=== PATIENT | female | born 1995 | race African-American/Black ===

== ENCOUNTER 2017-03-30 08:07 | Emergency (ER) | payer OTHER ==
[2017-03-30 08:15] VITALS: BP 110/63; PULSE 76; TEMP 98.5; BMI 35.5
--- NOTE | 2017-03-30 08:31 | PDOC ---
History of Present Illness - General Chief Complaint: Cold Symptoms Stated Complaint: PINK EYE/BODYACHES Time Seen by Provider: 03/30/17 08:16 History Source: Patient Exam Limitations: No Limitations - History of Present Illness Initial Comments: 03/30/17 08:26 CC body aches, cough, runny nose and right eye drainage x 3 days; no fever with chills Timing/Duration: reports: getting worse Severity: reports: mild Possible Cause: Yes: allergen exposure Associated Symptoms: reports: cough, sinus infection. denies: earache, headache , sore throat, wheezing Past History - Past Medical History Allergies/Adverse Reactions: Allergies Allergy/AdvReac Type Severity Reaction Status Date / Time No Known Allergies Allergy Verified 03/30/17 08:09 Home Medications: Ambulatory Orders NK [No Known Home Medication] 03/30/17 Other medical history: denies. - Immunization History Immunization Up to Date: Yes - Psycho/Social/Smoking Cessation Hx Anxiety: No Suicidal Ideation: No Smoking Status: No Smoking History: Never smoked Have you smoked in the past 12 months: No Number of Cigarettes Smoked Daily: 0 Hx Alcohol Use: No Drug/Substance Use Hx: No Substance Use Type: None Review of Systems - Review of Systems Constitutional: Yes: Chills, Malaise. No: Fever HEENTM: Yes: Tearing, Nose Congestion. No: Double Vision, Ear Pain, Ear Discharge, Throat Swelling Respiratory: Yes: Cough. No: Stridor, Wheezing Cardiac (ROS): No: Symptoms Reported ABD/GI: No: Symptoms Reported *Physical Exam - Vital Signs Last Vital Signs Temp Pulse Resp BP Pulse Ox 98.5 F 76 18 110/63 98 03/30/17 08:09 03/30/17 08:09 03/30/17 08:09 03/30/17 08:09 03/30/17 08:09 - Physical Exam General Appearance: Yes: Appropriately Dressed. No: Apparent Distress HEENT: positive: EOMI, TMs Normal, Pharynx Normal, Nasal Congestion, Rhinorrhea , Other (injected right conjunctiva, with debris right lid margins). negative: TM Bulging, TM Dull, TM Erythema, Lesions Respiratory/Chest: positive: Lungs Clear. 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
== END 2017-03-30 08:36 | disposition home or self-care (01) ==
LOC: JERFT 08:07
DX: H10.31 Unspecified acute conjunctivitis, right eye (principal); J34.89 Other specified disorders of nose and nasal sinuses
CPT/HCPCS: 99281-25

== ENCOUNTER 2017-08-04 20:52 | Emergency (ER) | payer OTHER ==
[2017-08-04 21:00] VITALS: BP 108/80; PULSE 64; TEMP 98; BMI 36.0
--- NOTE | 2017-08-04 22:18 | PDOC ---
History of Present Illness - General Chief Complaint: Pain Stated Complaint: LUMP IN CHEST Time Seen by Provider: 08/04/17 22:18 - History of Present Illness Initial Comments: 08/04/17 22:36 Patient is a 22-year-old female with no past medical history who presents to the emergency department today complaining of a bump on her sternum. Patient states that she had a pimple in that area proximally 2 weeks ago. It drained pus at the time. Now she states that there is a small bump under her skin. It hurts when she touches it, otherwise does not bother her. Denies fever, chills, nausea, vomiting and diarrhea. Denies breast pain or lumps. Denies active drainage from the site. Past History - Travel Traveled outside of the country in the last 30 days: No Close contact w/someone who was outside of country & ill: No - Past Medical History Allergies/Adverse Reactions: Allergies Allergy/AdvReac Type Severity Reaction Status Date / Time No Known Allergies Allergy Verified 08/04/17 20:57 Home Medications: Ambulatory Orders NK [No Known Home Medication] 08/04/17 - Immunization History Immunization Up to Date: Yes - Psycho/Social/Smoking Cessation Hx Anxiety: No Suicidal Ideation: No Smoking Status: No Smoking History: Never smoked Have you smoked in the past 12 months: No Number of Cigarettes Smoked Daily: 0 Hx Alcohol Use: No Drug/Substance Use Hx: No Substance Use Type: None Review of Systems - Review of Systems Able to Perform ROS?: Yes Is the patient limited Italian proficient: No Constitutional: No: Chills, Fever, Malaise, Weakness Integumentary: Yes: Lumps (mid sternum. ). No: Change in Color, Erythema, Pruritus, Rash *Physical Exam - Vital Signs Last Vital Signs Temp Pulse Resp BP Pulse Ox 98 F 64 18 108/80 100 08/04/17 20:58 08/04/17 20:58 08/04/17 20:58 08/04/17 20:58 08/04/17 20:58 - Physical Exam Comments: 08/06/17 09:41 GENERAL: [The patient is awake, alert, and fully oriented, in no acute distress. ] HEAD: [Normal with no signs of trauma.] EYES: [Pupils equal, round and reactive to light, extraocular movements intact, sclera anicteric, conjunctiva clear.] EXTREMITIES: [Normal range of motion, no edema.] NEUROLOGICAL: [Normal speech, normal gait.] PSYCH: [Normal mood, normal affect.] SKIN: [Small 2cc hard lump felt on palpation. The lump is round and freely moving on exam. No active drainage from the site, no lump visualized on the skin during inspection. Warm, Dry, normal turgor, no rashes or lesions noted.] Medical Decision Making - Medical Decision Making 08/04/17 22:43 Patient is a 22-year-old female with no past medical history who presents to the emergency department today complaining of a bump on her sternum. The bump is freely mobile and pt. does not c/o of pain during exam. There is no pus expressed from the site and the bump is non-fluctuant. There is nothing to I&D at this time. Told pt if the bump still bothers her she should follow up with surgery. Pt. comfortable with discharge planning and all questions were answered at this time. *DC/Admit/Observation/Transfer Diagnosis at time of Disposition: Cyst - Discharge Dispostion Disposition: HOME Condition at time of disposition: Good Admit: No - Referrals Referrals: Geraldo Yun MD [Staff Physician] - - Patient Instructions Additional Instructions: You have a small cyst on your chest. It is not infected and small. Nothing can be drained today. You may do warm compresses on the area to try and bring it to a head. Follow up with surgery if you are interested in having the cyst removed. Return to the ED if you have worsening fevers, chills, if the lump gets larger or painful, or if you have any changes in your symptoms.
== END 2017-08-04 22:40 | disposition home or self-care (01) ==
LOC: JERFT 20:52
DX: L72.0 Epidermal cyst (principal)
CPT/HCPCS: 99281-25

== ENCOUNTER 2018-04-11 19:04 | Emergency (ER) | payer OTHER ==
[2018-04-11 19:09] VITALS: BP 109/78; PULSE 91; TEMP 98.7; BMI 38.7
[2018-04-11] MEDS ORDERED: IBUPROFEN 400 MG TABLET (FP) PO ONE ×2 (19:37→19:40)
--- NOTE | 2018-04-11 19:42 | PDOC ---
History of Present Illness - General Chief Complaint: Pain, Acute Stated Complaint: PAIN Time Seen by Provider: 04/11/18 19:20 History Source: Patient - History of Present Illness Timing/Duration: reports: yesterday Associated Symptoms: reports: sore throat. denies: cough, fever/chills Past History - Past Medical History Allergies/Adverse Reactions: Allergies Allergy/AdvReac Type Severity Reaction Status Date / Time No Known Allergies Allergy Verified 04/11/18 19:09 Home Medications: Ambulatory Orders Amoxicillin - [Amoxicillin 875mg Tablet -] 875 mg PO BID #14 tab 04/11/18 Ibuprofen [Motrin -] 800 mg PO QID #28 tablet 04/11/18 - Immunization History Immunization Up to Date: Yes - Suicide/Smoking/Psychosocial Hx Smoking Status: No Smoking History: Never smoked Have you smoked in the past 12 months: No Number of Cigarettes Smoked Daily: 0 Information on smoking cessation initiated: No Hx Alcohol Use: No Drug/Substance Use Hx: No Substance Use Type: None Review of Systems - Review of Systems Constitutional: No: Chills, Fever HEENTM: Yes: Throat Pain. No: Ear Pain, Nose Congestion Respiratory: No: Cough *Physical Exam - Vital Signs Last Vital Signs Temp Pulse Resp BP Pulse Ox 98.7 F 91 H 16 109/78 100 04/11/18 19:07 04/11/18 19:07 04/11/18 19:07 04/11/18 19:07 04/11/18 19:07 - Physical Exam General Appearance: Yes: Appropriately Dressed. No: Apparent Distress HEENT: positive: Normal Voice, TMs Normal, Tonsillar Exudate (w/ enlarged tonsils b/l, no uvular deviation) Neck: positive: Supple, Lymphadenopathy (R) ( submandibular b/l), Lymphadenopathy (L) Respiratory/Chest: negative: Respiratory Distress Integumentary: positive: Dry, Warm Neurologic: positive: Fully Oriented, Alert, Normal Mood/Affect Medical Decision Making - Medical Decision Making 04/11/18 19:39 22-year-old F, h/o recurrent strep, here with sore throat and "swollen lymph nodes" x 2 days per patient. No cough, fever or chills. Patient stable and well appearing with with enlarged, exudative tonsils bilaterally w/ b/l submandibular lymphadenopathy. 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 Will treat empirically. Reasons to return discussed with patient *DC/Admit/Observation/Transfer Diagnosis at time of Disposition: Strep pharyngitis - Discharge Dispostion Disposition: HOME Condition at time of disposition: Good - Prescriptions Prescriptions: Amoxicillin - [Amoxicillin 875mg Tablet -] 875 mg PO BID #14 tab Ibuprofen [Motrin -] 800 mg PO QID #28 tablet - Referrals - Patient Instructions Printed Discharge Instructions: Strep Throat Additional Instructions: Take medications as directed Return for worsening of symptoms - Post Discharge Activity
== END 2018-04-11 19:44 | disposition home or self-care (01) ==
LOC: JERFT 19:04
DX: J02.0 Streptococcal pharyngitis (principal); B95.5 Unspecified streptococcus as the cause of diseases classified elsewhere; R59.0 Localized enlarged lymph nodes
CPT/HCPCS: 99281-25

== ENCOUNTER 2018-04-20 08:11 | Emergency (ER) | payer OTHER ==
[2018-04-20 08:20] VITALS: BP 129/61; PULSE 76; TEMP 98.3; BMI 38.7
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
== END 2018-04-20 09:55 | disposition home or self-care (01) ==
LOC: JER 08:11 → JERFT 08:11
DX: S93.492A Sprain of other ligament of left ankle, initial encounter (principal); W03.XXXA Other fall on same level due to collision with another person, initial encounter; Y93.89 Activity, other specified; Y92.89 Other specified places as the place of occurrence of the external cause; Y99.8 Other external cause status
CPT/HCPCS: 73610-TC-LT-FY; 73630-TC-LT; 84703; 99281-25

== ENCOUNTER 2018-11-29 09:58 | Emergency (ER) | payer OTHER ==
[2018-11-29 10:04] VITALS: BP 111/75; PULSE 90; TEMP 98.1; BMI 40.9
[2018-11-29] MEDS ORDERED: IBUPROFEN 400 MG TABLET (FP) PO ONE ×2 (10:26→10:29)
--- NOTE | 2018-11-29 10:41 | PDOC ---
History of Present Illness - General Chief Complaint: Sore Throat Stated Complaint: SORE THROAT Time Seen by Provider: 11/29/18 10:08 History Source: Patient - History of Present Illness Associated Symptoms: reports: headache, muscle aches, sore throat. denies: chest pain/soreness, cough, earache, facial pain, fever/chills, nasal drainage Past History - Past Medical History Allergies/Adverse Reactions: Allergies Allergy/AdvReac Type Severity Reaction Status Date / Time No Known Allergies Allergy Verified 11/29/18 10:04 Home Medications: Ambulatory Orders Ibuprofen [Motrin -] 2 tab PO Q6H #30 tablet 11/29/18 Methylprednisolone [Medrol Dose Jonah] 4 mg PO ASDIR #21 tablet 11/29/18 COPD: No - Immunization History Immunization Up to Date: Yes - Suicide/Smoking/Psychosocial Hx Smoking Status: No Smoking History: Never smoked Have you smoked in the past 12 months: No Number of Cigarettes Smoked Daily: 0 Hx Alcohol Use: No Drug/Substance Use Hx: No Substance Use Type: None Review of Systems - Review of Systems Constitutional: No: Chills, Fever HEENTM: Yes: Throat Pain. No: Ear Pain Respiratory: No: Cough ABD/GI: No: Diarrhea, Vomiting *Physical Exam - Vital Signs Last Vital Signs Temp Pulse Resp BP Pulse Ox 98.1 F 90 18 111/75 97 11/29/18 10:01 11/29/18 10:01 11/29/18 10:01 11/29/18 10:01 11/29/18 10:01 - Physical Exam General Appearance: Yes: Appropriately Dressed. No: Apparent Distress HEENT: positive: Normal Voice, Other (b/l tonsillar enlargement). negative: Scleral Icterus (R), Scleral Icterus (L), Tonsillar Exudate Neck: positive: Supple. negative: Lymphadenopathy (R), Lymphadenopathy (L) Respiratory/Chest: negative: Respiratory Distress Integumentary: positive: Dry, Warm Neurologic: positive: Fully Oriented, Alert, Normal Mood/Affect Moderate Sedation - Procedure Monitoring Vital Signs: Procedure Monitoring Vital Signs Temperature 98.1 F 11/29/18 10:01 Pulse Rate 90 11/29/18 10:01 Respiratory Rate 18 11/29/18 10:01 Blood Pressure 111/75 11/29/18 10:01 O2 Sat by Pulse Oximetry (%) 97 11/29/18 10:01 ED Treatment Course - Medications Given in the ED: ED Medications Discontinued Medications Generic Name Dose Route Start Last Admin Trade Name Juan J PRN Reason Stop Dose Admin Ibuprofen 800 mg 11/29/18 10:26 11/29/18 10:29 Motrin - PO 11/29/18 10:27 800 mg ONCE ONE Administration Medical Decision Making - Medical Decision Making 11/29/18 10:38 23-year-old female endorses history of recurrent strep, here with sore throat with body aches and headache x several days. No fever, ear pain, vomiting, diarrhea, neck pain, photophobia or rash. No sick contacts or recent travel. Not currently taking any medications See exam Viral syndrome Exam only remarkable for b/l tonsilar enlargement -strep -flu -motrin 11/29/18 11:59 Flu and strep negative. Dc w/ supportive tx *DC/Admit/Observation/Transfer Diagnosis at time of Disposition: Viral syndrome - Discharge Dispostion Disposition: HOME Condition at time of disposition: Stable - Prescriptions Prescriptions: Ibuprofen [Motrin -] 2 tab PO Q6H #30 tablet Methylprednisolone [Medrol Dose Jonah] 4 mg PO ASDIR #21 tablet - Referrals Referrals: ON STAFF,NOT [Primary Care Provider] - - Patient Instructions Printed Discharge Instructions: DI for Viral Syndrome Additional Instructions: Strep test and flu were negative. The cause of your symptoms is most likely viral. Rest and plenty of fluids and take medications as directed - Post Discharge Activity
== END 2018-11-29 12:01 | disposition home or self-care (01) ==
LOC: JERFT 09:58
DX: B34.9 Viral infection, unspecified (principal)
CPT/HCPCS: 87070; 87077; 87804; 87880; 99281-25

== ENCOUNTER 2018-12-27 09:16 | Emergency (ER) | payer OTHER ==
[2018-12-27 09:22] VITALS: BP 133/64; PULSE 83; TEMP 99.2; BMI 40.7
--- NOTE | 2018-12-27 10:16 | PDOC ---
History of Present Illness - General Chief Complaint: Pain, Acute Stated Complaint: LT FOOT INJURY Time Seen by Provider: 12/27/18 09:50 History Source: Patient - History of Present Illness Initial Comments: 12/27/18 10:42 23 year female with no medical or surgical history present with reports of left foot pain x 1 week. Patient states pain and swelling intermittently x 1 week. Reports no injury or fall. Reports pain mostly below left great toe especially with weight bearing. 12/27/18 10:44 Occurred: reports: last week Severity: Yes: moderate Lower Extremity Pain Location: left: 1st toe Method of Injury: Yes: unknown Modifying Factors: improves with: immobilization, pain medication Lower Ext. Injury Location - Specific Injury Location Hips: bilateral hip: no evidence of injury Legs: bilateral: normal inspection Knees: bilateral no evidence of injury Ankle: bilateral no evidence of injury Foot: bilateral foot no evidence of injury Extremity Pain Location - Extremity Pain Location Extremity Pain Locations: left: 1st toe Past History - Past Medical History Allergies/Adverse Reactions: Allergies Allergy/AdvReac Type Severity Reaction Status Date / Time No Known Allergies Allergy Verified 11/29/18 10:04 Home Medications: Ambulatory Orders NK [No Known Home Medication] 12/27/18 COPD: No - Immunization History Immunization Up to Date: Yes - Suicide/Smoking/Psychosocial Hx Smoking Status: No Smoking History: Never smoked Have you smoked in the past 12 months: No Number of Cigarettes Smoked Daily: 0 Information on smoking cessation initiated: No Hx Alcohol Use: No Drug/Substance Use Hx: No Substance Use Type: None Review of Systems - Review of Systems Able to Perform ROS?: Yes Is the patient limited Slovenian proficient: No Constitutional: No: Chills, Fever HEENTM: No: Nose Pain, Throat Pain Respiratory: No: Cough, Orthopnea, Shortness of Breath, Wheezing Cardiac (ROS): No: Chest Pain, Lightheadedness, Palpitations ABD/GI: No: Abdominal Distended, Indigestion : No: Burning, Hematuria Musculoskeletal: Yes: Joint Pain. No: Joint Swelling Integumentary: No: Bruising, Erythema Neurological: Yes: Numbness, Paresthesia *Physical Exam - Vital Signs Last Vital Signs Temp Pulse Resp BP Pulse Ox 99.2 F 83 17 133/64 98 12/27/18 09:18 12/27/18 09:18 12/27/18 09:18 12/27/18 09:18 12/27/18 09:18 - Physical Exam General Appearance: Yes: Nourished, Appropriately Dressed HEENT: positive: TMs Normal, Pharynx Normal Neck: positive: Supple. negative: Lymphadenopathy (R), Lymphadenopathy (L) Respiratory/Chest: positive: Lungs Clear, Normal Breath Sounds Cardiovascular: positive: Regular Rate, S1, S2 Extremity: positive: Normal Capillary Refill. negative: Swelling, Erythema Integumentary: negative: Erythema Neurologic: positive: leadership coach II-XII NML intact, Fully Oriented, Alert Moderate Sedation - Procedure Monitoring Vital Signs: Procedure Monitoring Vital Signs Temperature 99.2 F 12/27/18 09:18 Pulse Rate 83 12/27/18 09:18 Respiratory Rate 17 12/27/18 09:18 Blood Pressure 133/64 12/27/18 09:18 O2 Sat by Pulse Oximetry (%) 98 12/27/18 09:18 ED Treatment Course - RADIOLOGY Radiology Studies Ordered: Category Date Time Status ANKLE & FOOT-RIGHT* [RAD] Stat Radiology 12/27/18 10:13 Ordered Medical Decision Making - Medical Decision Making 12/27/18 10:46 23 year old female with no significant medical or surgical history presents with left foot pain intermittently for 1 week, no injury or fall. Plan analgesia xray of left foot 12/27/18 11:16 xray negative for spurr, bunion or fracture d/c referred to water conservation specialist *DC/Admit/Observation/Transfer Diagnosis at time of Disposition: Foot pain, left - Discharge Dispostion Disposition: HOME Condition at time of disposition: Good - Referrals Referrals: Jose Alfredo Gimenez MD [Primary Care Provider] - 3 days Geronimo Pratt MD [Staff Physician] - - Patient Instructions Printed Discharge Instructions: DI for Foot Pain Additional Instructions: Activity as tolerated May take tylenol or ibuprofen for pain Call primary physician and water conservation specialist for follow up appointment May return for worsening of symptoms - Post Discharge Activity Forms/Work/School Notes: Back to Work
[2018-12-27] MEDS ORDERED: ACETAMINOPHEN 500 MG TABLET (FP) PO ONE (10:47)
[2018-12-27] MEDS ORDERED: ACETAMINOPHEN 500 MG TABLET (FP) ONE (10:49)
== END 2018-12-27 11:21 | disposition home or self-care (01) ==
LOC: JERFT 09:16
DX: M79.672 Pain in left foot (principal)
CPT/HCPCS: 73610-TC-LT-FY; 73630-TC-LT; 99281-25

== ENCOUNTER 2019-08-30 16:15 | Emergency (ER) | payer OTHER ==
[2019-08-30 16:37] VITALS: BP 142/69; PULSE 85; TEMP 98.8; BMI 39.4
[2019-08-30] MEDS ORDERED: ACETAMINOPHEN 325 MG TABLET (FP) PO ONE (17:14)
[2019-08-30] MEDS ORDERED: DEXAMETHASONE LIQUID 0.5 MG/5 ML PO ONE (17:14)
--- NOTE | 2019-08-30 17:14 | PDOC ---
History of Present Illness - General Chief Complaint: Sore Throat Stated Complaint: SORE THROAT Time Seen by Provider: 08/30/19 16:39 History Source: Patient Exam Limitations: No Limitations Past History - Travel Traveled outside of the country in the last 30 days: No Close contact w/someone who was outside of country & ill: No - Past Medical History Allergies/Adverse Reactions: Allergies Allergy/AdvReac Type Severity Reaction Status Date / Time No Known Allergies Allergy Verified 08/30/19 16:37 Home Medications: Ambulatory Orders NK [No Known Home Medication] 12/27/18 COPD: No - Immunization History Immunization Up to Date: Yes - Psycho Social/Smoking Cessation Hx Smoking Status: No Smoking History: Never smoked Have you smoked in the past 12 months: No Number of Cigarettes Smoked Daily: 0 Hx Alcohol Use: No Drug/Substance Use Hx: No Substance Use Type: None Review of Systems - Review of Systems Able to Perform ROS?: Yes Comments:: 08/30/19 18:02 CONSTITUTIONAL: Absent: fever, chills, diaphoresis, generalized weakness, malaise, loss of appetite HEENT: Present: sore throat Absent: rhinorrhea, nasal congestion, throat swelling, difficulty swallowing, mouth swelling, ear pain, eye pain, visual Changes CARDIOVASCULAR: Absent: chest pain, loss of consciousness, palpitations, irregular heart rate, peripheral edema RESPIRATORY: Absent: cough, shortness of breath, dyspnea with exertion, orthopnea, wheezing, stridor, hemoptysis GASTROINTESTINAL: Absent: abdominal pain, abdominal distension, nausea, vomiting, diarrhea, constipation, melena, hematochezia GENITOURINARY: Absent: dysuria, frequency, urgency, hesitancy, hematuria, flank pain, genital pain MUSCULOSKELETAL: Absent: myalgia, arthralgia, joint swelling SKIN: Absent: rash, itching, pallor HEMATOLOGIC/IMMUNOLOGIC: Absent: easy bleeding, easy bruising, lymphadenopathy, frequent infections ENDOCRINE: Absent: unexplained weight gain, unexplained weight loss, heat intolerance, cold intolerance NEUROLOGIC: Absent: headache, focal weakness or paresthesias, dizziness, unsteady gait, seizure, mental status changes, bladder or bowel incontinence PSYCHIATRIC: Absent: anxiety, depression, suicidal or homicidal ideation, hallucinations. Is the patient limited British proficient: No *Physical Exam - Vital Signs Last Vital Signs Temp Pulse Resp BP Pulse Ox 98.8 F 85 18 142/69 99 08/30/19 16:35 08/30/19 16:35 08/30/19 16:35 08/30/19 16:35 08/30/19 16:35 - Physical Exam Comments: 08/30/19 18:02 GENERAL: Well developed, well nourished. Awake and alert. No acute distress. HEENT: Normocephalic, atraumatic. PERRLA, EOMI. No conjunctival pallor. Sclera are non- icteric. Moist mucous membranes. Oropharynx with 3+ tonsils and erythematous. No exudate. Uvula is midline. NECK: Supple. Full ROM. No JVD. Carotid pulses 2+ and symmetric, without bruits. No thyromegaly. No lymphadenopathy. CARDIOVASCULAR: Regular rate and rhythm. No murmurs, rubs, or gallops. Distal pulses are 2+ and symmetric. PULMONARY: No evidence of respiratory distress. Lungs clear to auscultation bilaterally. No wheezing, rales or rhonchi. ABDOMINAL: Soft. Non-tender. Non-distended. No rebound or guarding. No organomegaly. Normoactive bowel sounds. MUSCULOSKELETAL Normal range of motion at all joints. No bony deformities or tenderness. No CVA tenderness. EXTREMITIES: No cyanosis. No clubbing. No edema. No calf tenderness. SKIN: Warm and dry. Normal capillary refill. No rashes. No jaundice. NEUROLOGICAL: Alert, awake, appropriate. Cranial nerves 2-12 intact. No deficits to light touch and temperature in face, upper extremities and lower extremities. No motor deficits in the in face, upper extremities and lower extremities. Normoreflexic in the upper and lower extremities. Normal speech. Toes are down- going bilaterally. Gait is normal without ataxia. PSYCHIATRIC: Cooperative. Good eye contact. Appropriate mood and affect. Medical Decision Making - Medical Decision Making 08/30/19 19:46 the patient is a 24-year-old female no past medical history who presents to ER with 3 days of sore throat. She notes that she has difficulty swallowing and that she feels congested. Denies fevers. She also notes that her glands are swollen. Denies earache, nausea, vomiting, diarrhea and urinary symptoms. A/P: Pharyngitis On exam tonsils are erythematous and edematous to 3+. No exudate noted. Uvula is midline. Swallowing her own secretions Rapid strep is negative Afebrile, VSS Is likely a viral pharyngitis. Decadron given in the ER for relief of symptoms. Discharge home with primary care follow-up. I discussed the physical exam findings, ancillary test results and final diagnoses with the patient. I answered all of the patient's questions. The patient was satisfied with the care received and felt comfortable with the discharge plan and treatment plan. The Patient agrees to follow up with the primary care physician/specialist within 24-72 hours. Return precautions were given. Discharge - Discharge Information Problems reviewed: Yes Clinical Impression/Diagnosis: Pharyngitis, acute Qualifiers: Pharyngitis/tonsillitis etiology: unspecified etiology Qualified Code(s): J02.9 - Acute pharyngitis, unspecified Condition: Stable Disposition: HOME - Admission No - Follow up/Referral Referrals: Jose Alfredo Gimenez MD [Primary Care Provider] - - Patient Discharge Instructions Patient Printed Discharge Instructions: DI for Pharyngitis/Tonsillopharyngitis -- Adult Additional Instructions: You have a sore throat or pharyngitis. Rapid strep testing was negative today. You may take Motrin 600 mg every 6 hours as needed for pain. Please do warm water gargles and cough drops to help with your pain. Change your toothbrush when you started feeling better. Follow-up with your primary care doctor. Return to the ER for fever, difficulty breathing, difficulty swallowing, or if you have any changes in your symptoms. - Post Discharge Activity Work/Back to School Note: Back to Work
[2019-08-30] MEDS ORDERED: ACETAMINOPHEN 325 MG TABLET (FP) ONE (17:19)
[2019-08-30] MEDS ORDERED: DEXAMETHASONE SOD PHOSPHATE 10 MG/1 ML VIAL ONE ×2 (17:19)
== END 2019-08-30 18:18 | disposition home or self-care (01) ==
LOC: JERFT 16:15
DX: J02.9 Acute pharyngitis, unspecified (principal)
CPT/HCPCS: 87070; 87880; 99281-25